=== PATIENT | male | born 1950 | race Caucasian/White ===

== ENCOUNTER → 2016-10-31 | Outpatient (CLI) | payer MEDICARE | LOC: GMAM 12:56 | PROVIDERS: ATTEND Family Medicine | DX: L03.211 Cellulitis of face (principal) ==

== ENCOUNTER 2016-11-29 19:15 | Emergency (ER) | payer MEDICARE, OTHER ==
--- NOTE | 2016-11-29 19:45 | ED.PDOC ---
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 Patient woke up this AM with mild discomfort in his abdomen (generalized). He has had melana today. No symptoms prior to today. His last meal was at lunch. Patient has a history of HTN and hyperlipidemia, and takes ASA 81 mg daily. He occasionally takes Aleve, the last one being two days ago. He has a history of bleeding ulcer about 10 years ago, but hasn't had any problems with it since. He does not smoke, drinks one to two glasses of wine daily. Timing/Duration: 4-6 hours Severity: mild Improving Factors: nothing Worsening Factors: nothing Associated Symptoms: nausea/vomiting, weakness, other Allergies/Adverse Reactions: Allergies NO KNOWN ALLERGY Allergy (Verified 11/29/16 19:23) Home Medications: Ambulatory Orders Atorvastatin Calcium [Lipitor] 10 mg PO DAILY 09/22/13 Ascorbic Acid [Vitamin C] 100 mg PO 09/24/13 Review of Systems - Review of Systems Constitutional: States: no symptoms reported EENTM: States: no symptoms reported Respiratory: States: no symptoms reported Cardiology: States: no symptoms reported Gastrointestinal/Abdominal: States: abdominal pain, nausea, vomiting, other - hematemesis, melena Genitourinary: States: no symptoms reported Musculoskeletal: States: no symptoms reported Skin: States: no symptoms reported Neurological: States: no symptoms reported Endocrine: States: no symptoms reported Hematologic/Lymphatic: States: no symptoms reported All other Systems: Reviewed and Negative Past Medical History (General) - Patient Medical History Hx Seizures: No Hx Stroke: No Hx Dementia: No Hx Asthma: No Hx of COPD: No Hx Cardiac Disorders: No Hx Congestive Heart Failure: No Hx Pacemaker: No Hx Hypertension: Yes Hx Thyroid Disease: No Hx Diabetes: No Hx Gastroesophageal Reflux: No Hx Renal Disease: No Hx of HIV: No Hx MRSA: No Surgical History: appendectomy - Vaccination History Hx Tetanus, Diphtheria Vaccination: Yes Hx Influenza Vaccination: No Hx Pneumococcal Vaccination: No Immunizations Up to Date: Yes - Social History Hx Tobacco Use: No Hx Alcohol Use: Yes Family Medical History - Family History Mother Family History: Unknown Physical Exam - Physical Exam General Appearance: Alert, Comfortable, No apparent distress Eye Exam: bilateral normal Ears, Nose, Throat: hearing grossly normal, normal ENT inspection Respiratory: lungs clear, normal breath sounds, no respiratory distress, no accessory muscle use Cardiovascular/Chest: regular rate, rhythm, no edema, no gallop, no murmur Gastrointestinal/Abdominal: normal bowel sounds, non tender, soft, no organomegaly Back Exam: normal inspection Extremity: normal range of motion, non-tender, normal inspection, pedal edema - trace Neurologic: alert, normal mood/affect, oriented x 3 Skin Exam: warm/dry, pallor Progress - Progress Progress: 11/29/16 19:52 Due to nature of GI bleed, transfer was arranged immediately. Patient's blood pressure is low (systolic 90s), but he is currently stable and no longer bleeding. Labs were obtained, however any other testing will be done at receiving hospital. - Results/Orders Results/Orders: 11/29/16 11/29/16 19:23 19:33 Temperature 94.9 F L Pulse Rate [ 80 80 Left Radial] Respiratory 18 18 Rate Blood Pressure 96/45 [Left Arm] O2 Sat by Pulse 95 Oximetry Departure - Departure Clinical Impression: Upper GI bleeding Time of Disposition: 19:54 Disposition: Transfer to Hospital Condition: Good Home Medications: Ambulatory Orders Atorvastatin Calcium [Lipitor] 10 mg PO DAILY 09/22/13 Ascorbic Acid [Vitamin C] 100 mg PO 09/24/13 Transfer to Outside Facility - Transfer Information Accepting Provider:: Dr. Miguel Kendall @ [id number] Accepting Facility: [facility] Reason for Transfer: required specialist not available
[2016-11-29] MEDS ORDERED: SODIUM CHLORIDE 0.9% 10 ML VIAL ONE ×2 (19:52→19:53)
[2016-11-29] MEDS: PANTOPRAZOLE SODIUM IV 40 MG VIAL IV ONE (20:11)
[2016-11-29] MEDS: SODIUM CHLORIDE 0.9% 1000ML 1,000 ML IVS ONE (20:12)
[2016-11-29] MEDS: SODIUM CHLORIDE 0.9% (FLUSH) 10 ML SYG IV PRN (20:13)
[2016-11-29 20:20] VITALS: O2SAT 100
[2016-11-29 20:44] VITALS: BP 112/60; TEMP 96.9
== END 2016-11-29 20:35 | disposition short-term general hospital (02) ==
LOC: ER 19:15
DX: K92.2 Gastrointestinal hemorrhage, unspecified (principal); I10 Essential (primary) hypertension; E78.5 Hyperlipidemia, unspecified
CPT/HCPCS: 80053; 82150; 83690; 85025; 85610; 85730; J7030

== ENCOUNTER → 2017-03-15 | Outpatient (CLI) | payer MEDICARE | END | disposition home or self-care (01) | LOC: GMAM 11:05 | PROVIDERS: ATTEND Family Medicine | DX: D64.9 Anemia, unspecified (principal) ==

== ENCOUNTER → 2017-04-10 | Outpatient (CLI) | payer MEDICARE | END | disposition home or self-care (01) | LOC: GMAM 10:40 | PROVIDERS: ATTEND Family Medicine | DX: E53.8 Deficiency of other specified B group vitamins (principal) ==

== ENCOUNTER → 2017-06-04 | Outpatient (CLI) | payer MEDICARE, OTHER | END | disposition home or self-care (01) | LOC: GMAM 09:53 | PROVIDERS: ATTEND Family Medicine | DX: R07.9 Chest pain, unspecified (principal) ==

== ENCOUNTER → 2017-12-13 | Outpatient (CLI) | payer MEDICARE, OTHER | LOC: GMAM 11:27 | PROVIDERS: ATTEND Family Medicine | DX: E29.1 Testicular hypofunction (principal); E53.8 Deficiency of other specified B group vitamins; Z12.5 Encounter for screening for malignant neoplasm of prostate | CPT/HCPCS: 82607; 84403; G0103 ==

== ENCOUNTER → 2018-01-15 | Outpatient (CLI) | payer MEDICARE, OTHER | LOC: GMAM 14:45 | PROVIDERS: ATTEND Family Medicine | DX: E83.42 Hypomagnesemia (principal) ==

== ENCOUNTER → 2018-04-11 | Outpatient (CLI) | payer MEDICARE, OTHER | LOC: GMAM 18:08 | PROVIDERS: ATTEND Family Medicine | DX: M70.21 Olecranon bursitis, right elbow (principal) ==

== ENCOUNTER → 2020-03-10 | Outpatient (CLI) | payer MEDICARE, OTHER ==
--- NOTE | 2020-03-10 13:29 | CT ---
EXAM DESCRIPTION: Abdoment/Pelvis w/o Contrast: Computed Tomography. CLINICAL HISTORY: 69 years Male ACUTE PYELONEPHRITIS COMPARISON: None. TECHNIQUE: Spiral-axial scans 2.5 x 2.5 mm intervals through the abdomen and pelvis without oral or IV contrast. Coronal and sagittal 2.0 mm reconstructions. Total Exam DLP: 1328 mGy-cm. This exam was performed according to our departmental CT dose-optimization program which includes automated exposure control, adjustment of the mA and/or kV according to patient size and/or use of iterative reconstruction technique; to reduce radiation dose to as low as reasonably achievable (ALARA). FINDINGS: Kidneys and Ureters: Heterogeneous renal density bilaterally but no asymmetric focal mass in the cortex or collecting systems with no perirenal fluid or focal stranding bilaterally. No hydronephrosis or radiodense stones. Bilateral ureters are negative. Lung bases and pleura: Negative. Liver, stomach, spleen, and adrenal glands: Heterogeneously increased density of the liver. Otherwise Unremarkable. Pancreas, Gallbladder, and Ducts: Extending gallbladder neck/cystic duct but not dilated. Common duct and pancreas are negative. Mesentery: Unremarkable. Aorta: Minimal atherosclerotic changes but normal outer caliber. Small Bowel: Negative. Terminal Ileum/Cecum: Unremarkable. Minimal fecal matter. Appendix not seen. No surrounding inflammatory changes. Colon: Diffuse diverticula more distal than proximal. Minimal redundancy of the sigmoid colon. No complications. Pelvic Organs: Prostate gland abutting the base of the urinary bladder. No free fluid. Spine and Bony Pelvis: Spondylosis in the lumbar spine. Minimal scoliosis. Bilateral hip joint arthrosis. Over coverage of the bilateral femoral heads by the acetabular hypertrophy. Minimal SI joint arthrosis. Abdominal Wall/Back Soft Tissues: Small fatty inguinal hernia left. No complications. IMPRESSION: 1. No prominent renal mass, evidence of pyelonephritis, or abscess, or hydronephrosis. No perirenal mass or fluid. Evaluation is limited due to lack of IV contrast. 2. Spine, bone, and joint abnormalities as noted. Diverticulosis without evidence of complications. Small fatty inguinal hernia on the left with no evidence of complications. Electronically signed by: Rosendo Boyer MD 03/10/2020 1:27 PM CDT
== END ==
LOC: CT 09:20
PROVIDERS: ATTEND Family Medicine
DX: N10 Acute pyelonephritis (principal); E53.8 Deficiency of other specified B group vitamins; I10 Essential (primary) hypertension; E29.1 Testicular hypofunction; R53.83 Other fatigue; Z12.5 Encounter for screening for malignant neoplasm of prostate
CPT/HCPCS: 74176; 82607; 84403; 84439; 84443; G0103

== ENCOUNTER → 2020-03-23 | Outpatient (CLI) | payer MEDICARE, OTHER | LOC: GMAM 11:09 | PROVIDERS: ATTEND Family Medicine | DX: R97.20 Elevated prostate specific antigen [PSA] (principal) ==

== ENCOUNTER → 2020-07-16 | Outpatient (CLI) | payer MEDICARE, OTHER | LOC: GMAM 11:41 | PROVIDERS: ATTEND Family Medicine | DX: E53.8 Deficiency of other specified B group vitamins (principal); M25.50 Pain in unspecified joint; I10 Essential (primary) hypertension; R97.20 Elevated prostate specific antigen [PSA]; E78.2 Mixed hyperlipidemia ==

== ENCOUNTER → 2020-09-01 | Outpatient (CLI) | payer MEDICARE, OTHER | LOC: GMAM 11:14 | PROVIDERS: ATTEND Family Medicine | DX: M25.50 Pain in unspecified joint (principal); E55.9 Vitamin D deficiency, unspecified; R73.9 Hyperglycemia, unspecified ==